=== PATIENT | female | born 1950 | race Caucasian/White ===

== ENCOUNTER 2020-02-27 15:10 | Emergency (ER) | payer MEDICARE, OTHER, SELFPAY ==
[2020-02-27] VITALS (10 sets, daily range): BP systolic 107–129; BP diastolic 33–49; PULSE 62–72; RESP 16–22; TEMP 37–37.9; O2SAT 2–99; BMI 31.8
--- NOTE | 2020-02-27 15:40 | XR_ITS ---
EXAMINATION: XR chest 1V CLINICAL INFORMATION: Reason for Exam pt sister + covid pt had dry cough x 3 days COMPARISON: None TECHNIQUE: XR chest 1V Tubes and lines: None Lungs and Minda: There is no dense consolidation however there is mild interstitial faint opacification concerning for interstitial pneumonitis. Possible viral pneumonia. Pleura: Normal. Costophrenic angles are sharp. No pneumothorax. Heart and mediastinum: The mediastinum is within normal limits.. Bones: Skeletal structures included are normal for patient's age. XR/XR chest 1V IMPRESSION: No dense consolidation lobar pneumonia. Mild diffuse interstitial lung markings concerning for possible interstitial pneumonitis including possible Covid interstitial pneumonia. No pleural effusion.
--- NOTE | 2020-02-27 15:56 | ED.URI ---
HPI - URI/Sore Throat General Chief Complaint: Upper Respiratory Symptoms Stated Complaint: covid testing Time Seen by Provider: 02/27/20 15:14 Source: patient Mode of arrival: ambulatory Limitations: no limitations History of Present Illness HPI Narrative: 69yoF c PMHx of DM, HTN, HLD presenting to the ED c c/o a dry cough for the past 3 days. Denies any other symptoms. Reports that her sister was just admitted and COVID positive. Denies recent travel. Related Data Allergies Allergy/AdvReac Type Severity Reaction Status Date / Time No Known Allergies Allergy Verified 02/27/20 15:15 Review of Systems Review of Systems: Constitutional : No Fever, No Chills, No fatigue, No Malaise ENT/Mouth : No sore throat, No runny nose Eyes: No Discharge Cardiovascular : No Chest Pain, No SOB Respiratory : + Cough, No Sputum, No Wheezing, No Smoke Exposure, No Dyspnea Gastrointestinal : No Nausea, No Vomiting, No Diarrhea Genitourinary : No irregular bleeding, No Dysuria, No Urinary Frequency, No Hematuria, No Urinary Incontinence, No Urgency, No Flank Pain, Musculoskeletal : No Myalgia Skin : No rash Neuro : No Headache Yes all other systems are reviewed and are negative PMFSH Past Medical History Attestation statement: The following information was validated with the patient. Social History Social History Alcohol intake: never Smoked in Last 30 Days: No Use of substances other than those prescribed or required for medical reasons: No Advance Directives: No Advance Directives Information Provided: No Physical Exam Vital Signs: Vital Signs: Last Vital Signs Temp 99.8 F 02/27/20 15:45 Pulse 64 02/27/20 15:45 Resp 17 02/27/20 15:45 BP 107/49 L 02/27/20 15:45 Pulse Ox 87 L 02/27/20 16:39 vital signs have been reviewed as normal and appeared to be correct. Blood pressure normal. Heart rate normal. Respiration rate normal. Temperature normal. Oxygen saturation normal. Appearance: Alert. Oriented X3. No acute distress. Head: Normal external exam. Normocephalic. Eyes: PERRLA. EOMI. Conjunctiva and sclera normal. Eyelids normal. ENT: EAC normal. TM's Normal. Pharynx normal. Uvula midline. Moist mucous membranes. No trismus noted. No drooling noted. No muffled voice noted. Neck: Normal inspection. Neck supple. FROM. No adenopathy. No meningeal signs. CVS: Normal heart rate and rhythm. Heart sound normal. No murmurs noted. Pulses normal throughout. Respiratory: No respiratory distress. Painless inspiration. Breath sounds normal. No wheezes/rales/rhonchi noted. Chest nontender. No accessory muscle usage noted or decreased air movement noted. Back: Full range of motion noted. Skin: Skin warm and dry. Normal skin color. Normal skin turgor. No rashes/lesions/lacerations noted. Extremities: No lower extremity edema. No calf tenderness noted. Extremities exhibit normal range of motion. Extremities nontender. Neuro: Oriented X 3. No motor deficit. No sensory deficit. Reflexes normal. Course Course Course Narrative: 15:40PM - 69yoF c PMHx of DM, HTN, HLD presenting to the ED c c/o a dry cough for the past 3 days. Denies any other symptoms. Reports that her sister was just admitted and COVID positive. - on exam patient appears well not in any acute distress. Although her blood pressure is noted to be 107/49. Oxygen saturation is at 90% on room air and with walking she is 87% on room air therefore is noted to be hypoxic although patient denies any shortness of breath or chest pain. - Concern for COVID vs Viral synrome - Plan: Labs, CXR, EKG, COVID/RSV/flu swab. Reevaluation(s) Reevaluation #1: - chest x-ray revealed mild diffuse interstitial lung markings concerning for possible interstitial pneumonitis including possible COVID interstitial pneumonia. - awaiting labs, EKG, COVID/RSV/flu. - Plan is to admit for COVID pneumonia. Time: 16:40 MDM - URI/Sore Throat Medical Records Attestation: I reviewed the patient's medical records. Lab Data Attestation: I reviewed the patient's lab results. Imaging Data Chest x-ray: Attestation: I personally reviewed and interpreted this imaging study as follows: Radiologist's impression: IMPRESSION: No dense consolidation lobar pneumonia. Mild diffuse interstitial lung markings concerning for possible interstitial pneumonitis including possible Covid interstitial pneumonia. No pleural effusion. Critical Care Time Critical Care Time Critical Care Time: Yes Total Critical Care Time: 60 Attestation: I personally attest to this time spent taking care of the patient Discharge Plan Discharge Clinical Impression: Pneumonia due to 2019 novel coronavirus, Hypoxia
--- NOTE | 2020-02-27 16:38 | ECG_ITS ---
Test Reason : LOW O2 Blood Pressure : / mmHG Vent. Rate : 069 BPM Atrial Rate : 069 BPM P-R Int : 158 ms QRS Dur : 084 ms QT Int : 394 ms P-R-T Axes : 052 -07 -04 degrees QTc Int : 422 ms Normal sinus rhythm Nonspecific ST changes. Inferior T wave inversions. Abnormal ECG No previous ECGs available Referred By: Margarita Milton Electronically Signed By:Mic Schulz
--- NOTE | 2020-02-27 16:38 | PC.NURSE ---
PT AMBULATED ON ROOM AIR. 90% WHILE SITTING, DROPPED TO 87% WHEN AMBULATING
[2020-02-27 17:08] LABS: Influenza A PCR NEGATIVE (Negative); Influenza B PCR NEGATIVE (Negative); Resp Syncy Virus RNA Qual PCR NEGATIVE (Negative); SARS COV2 PCR INHOUSE POSITIVE (Negative)
[2020-02-27 17:59] LABS: Basophils Percent Auto 0.2 % (0-2); Eosinophils Percent Auto 0.1 % (0-4); Hematocrit 38.6 % (37-47); Hemoglobin 12.7 g/dl (12.0-16.0); Imm Gran Abs Auto 0.03 X10*3/uL (0.00-0.03); Imm Gran Pct Auto 0.3 % (0.0-0.4); Lymphocytes Absolute Auto 1.9 X10*3/uL (1.2-4.9); Lymphocytes Percent Auto 18.4 % (20-40); MANUAL DIFF FLAG SCAN; Mean Corpuscular HGB Conc 32.9 g/dl (31.0-35.0); Mean Corpuscular Hemoglobin 28.5 pg (27.0-33.0); Mean Corpuscular Volume 86.5 fL (80-98); Mean Platelet Volume 11.8 fL (9.4-12.3); Monocytes Absolute Auto 0.5 X10*3/uL (0.1-1.2); Monocytes Percent Auto 5.1 % (2-11); Neutrophils Absolute Auto 7.8 X10*3/uL (2.0-8.3); Neutrophils Percent Auto 75.9 % (45-73); Platelet Count 180 X10*3/uL (160-400); Red Blood Count 4.46 X10*6/uL (4.20-5.50); Red Cell Distribution Width 13.4 % (11.0-16.0); SCAN SMEAR FLAG 1; White Blood Count 10.3 X10*3/uL (4.8-10.8)
[2020-02-27 18:17] LABS: SLIDE REVIEW VERIFIED
[2020-02-27] MEDS: Ibuprofen 800 MG TABLET PO (18:30)
[2020-02-27] MEDS: Albuterol Sulfate 90 MCG 8 GM INHALER 4 PUFF INHALE (18:30)
[2020-02-27] MEDS: methylPREDNISolone Sod Succ/PF 125 MG/2 ML VIAL IVPUSH (18:30)
[2020-02-27 18:31] LABS: Lactic Acid 1.6 mmol/L (0.5-2.0)
[2020-02-27 18:41] LABS: B Type Natriuretic Peptide 37 pg/mL (<100)
[2020-02-27 19:07] LABS: Alanine Aminotransferase 58 U/L (0-31); Albumin Level 3.6 g/dL (3.5-5.0); Alkaline Phosphatase 58 U/L (39-117); Anion Gap 17 (12-20); Aspartate Amino Transferase 69 U/L (5-31); Bilirubin Direct 0.4 mg/dL (0.0-0.5); Bilirubin Total 0.7 mg/dL (0.0-1.0); Blood Urea Nitrogen 44 mg/dL (9-16); Calcium 8.5 mg/dL (8.4-10.2); Carbon Dioxide 24 mmol/L (22-29); Chloride 100 mmol/L (96-108); Creatinine Clr Calc Pharmacy 48.4; Estimated Glomerular Filt Rate 49; Glucose Random 48 mg/dL (60-115); Lactate Dehydrogenase 467 U/L (122-220); Magnesium 1.9 mg/dL (1.6-2.6); Potassium 3.3 mmol/l (3.3-5.1); Sodium 138 mmol/L (135-145); Total Protein 6.6 g/dL (6.5-8.0)
[2020-02-27 19:09] LABS: Procalcitonin 0.05 ng/mL
[2020-02-27 19:11] LABS: INTERNATIONAL NORM RATIO 1.1 (0.9-1.1); Prothrombin Time 13.5 SEC (10.8-13.0)
[2020-02-27 19:13] LABS: Partial Thromboplastin Time 25.8 SEC (24.1-38.0)
[2020-02-27 19:14] LABS: D Dimer 225 NG/ML
[2020-02-27 19:16] LABS: Glucose, Whole Blood 48 mg/dL (60-115)
[2020-02-27 19:20] LABS: Ferritin 582 ng/mL (10-250)
[2020-02-27 19:29] LABS: Lactate Dehydrogenase 454 U/L (122-220)
--- NOTE | 2020-02-27 19:30 | PC.NURSE ---
CRITICAL GLUCOSE LEVEL, PT FULLY ALERT AT THIS TIME, SPEAKING IN CLEAR FULL SENTENCES. SKIN PWD. D50 ADMINISTERED PER PROTOCOL, PT GIVEN 2 SANDWICHES AND APPLE JUICE. PT HAD BEEN PLACED TO 2L SUPPLEMENTAL O2 VIA NC FOR SPO2 BETWEEN 90 AND 92% ON RA AT REST.
[2020-02-27 20:02] LABS: Glucose, Whole Blood 221 mg/dL (60-115)
== END 2020-02-27 22:47 | disposition home or self-care (01) ==
PROVIDERS: Physician Assistant; Physician Assistant Medical; Emergency Provider Emergency Medicine; PCP Internal Medicine
DX: U07.1 COVID-19 (principal); J12.89 Other viral pneumonia; R05 Cough; R09.02 Hypoxemia
CPT/HCPCS: 0241U; 36415; 71045; 80048; 80076; 82728; 82947; 83605; 83615; 83735; 83880; 84145; 85025; 85379; 85610; 85730; 87040; 93005; 96374; 96375; 99285; 99291; J2930